=== PATIENT | female | born 2005 | race Caucasian/White ===

== ENCOUNTER 2024-01-16 14:14 | Emergency (ER) | payer BC ==
[2024-01-16] MEDS ORDERED: Ondansetron ODT 4 MG TAB ONE (15:40)
[2024-01-16] MEDS ORDERED: Benzonatate 100 MG CAP ONE (15:44)
== END 2024-01-16 17:56 | disposition home or self-care (01) ==
LOC: ERS 14:14
DX: R05.9 Cough, unspecified (principal)
CPT/HCPCS: 71045; Q0162